=== PATIENT | female | born 1960 | race Caucasian/White ===

== ENCOUNTER 2017-09-03 12:53 | Inpatient (IN) | payer OTHER ==
[~2017-09-03] VITALS: Ht 165.1 cm; Wt 61.2 kg
[~2017-09-03 12:53] MED LIST: ANTIVERT25 MG ORAL; ASPIR-LOW81 MG PO; CYCLOBENZAPRINE10 MG ORAL; IBUPROFEN600 MG ORAL; KEFLEX500 MG ORAL; MOTRIN800 MG PO; MYLANTA II30 ML GT; NAPROXEN500 M2 ORAL; NKM; NORCO 5-325 TA1 EACH ORAL; ONDANSETRON ODT4 MG ORAL; PAROXETINE HCL20 MG PO; PEPCID40 MG PO; PRAVACHOL20 MG PO; PROTONIX40 MG ORAL; RANITIDINE HCL150 MG ORAL; TRAMADOL HCL50 MG ORAL; TRAZODONE HCL100 MG PO; TRAZODONE HCL50 MG PO; XANAX1 MG ORAL
[2017-09-03] MEDS ORDERED: Aspirin Baby 81mg ORAL ONE (15:00)
[2017-09-03 15:13] LABS: BASOPHILS % (AUTO) 0.9 % (0.0-2.0); EOSINOPHILS % (AUTO) 0.9 % (0.0-3.0); LYMPHOCYTES % (AUTO) 49.6 % (20.0-45.0); MEAN CORPUSCULAR HEMOGLOBIN 28.9 PG (27.0-31.0); MEAN CORPUSCULAR HGB CONC 32.3 G/DL (32.0-36.0); MEAN CORPUSCULAR VOLUME 89 FL (80-99); MEAN PLATELET VOLUME 6.5 FL (6.5-10.1); MONOCYTES % (AUTO) 6.6 % (1.0-10.0); PLATELET COUNT 374 K/UL (150-450); WHITE BLOOD COUNT 9.3 K/UL (4.8-10.8)
[2017-09-03 15:29] LABS: APPEARANCE,URINE CLEAR; KETONES,URINE NEGATIVE (NEGATIVE); LEUKOCYTE ESTERASE ,URINE NEGATIVE (NEGATIVE); NITRITE,URINE NEGATIVE (NEGATIVE); PH,URINE 5 (4.5-8.0); PROTEIN,URINE NEGATIVE (NEGATIVE); UROBILINOGEN,URINE NORMAL MG/DL (0.0-1.0)
[2017-09-03 15:30] LABS: ANION GAP 9 mmol/L (5-15); CALCIUM 9.6 MG/DL (8.5-10.1); CARBON DIOXIDE 29 MMOL/L (21-32); CHLORIDE 101 MMOL/L (98-107); CREATININE 0.6 MG/DL (0.55-1.30); GLOMERULAR FILTRATION RATE > 60 mL/min (>60); POTASSIUM 4.2 MMOL/L (3.5-5.1); SODIUM 139 MMOL/L (136-145)
[2017-09-03 15:34] LABS: ALANINE AMINOTRANSFERASE 26 U/L (12-78); ALBUMIN/GLOBULIN RATIO 0.8 (1.0-2.7); ASPARTATE AMINO TRANSFERASE 20 U/L (15-37); LIPASE 494 U/L (73-393); TOTAL PROTEIN 9.5 G/DL (6.4-8.2)
[2017-09-03 15:52] LABS: SQUAMOUS EPITHELIAL CELL,UR FEW /LPF (NONE/OCC); WBC,URINE 0-2 /HPF (0 - 2)
[2017-09-03 16:30] VITALS: BP 170/89
[2017-09-03] MEDS ORDERED: NORCO 10-325 T1 EACH ORAL (17:25)
[2017-09-03 17:32] VITALS: BP 157/64
[2017-09-03 18:20] VITALS: BP 147/77
[2017-09-03] MEDS ORDERED: HydrALAZINE 25mg tab ORAL PRN (19:15)
[2017-09-03 20:00] VITALS: BP 131/76
--- NOTE | 2017-09-03 23:02 | Emergency Room Report ---
History of Present Illness General Chief Complaint: General Complaint Source: Patient Present Illness [facility] The patient is a 57 y.o old female presenting for left leg weakness and numbness for the past 3 days. She has a stated history of hypertension and prediabetes. She states that she had a TIA treatment years prior which presented the same way. She denies any pain. She denies other symptoms including headache, dizziness, blurred vision, slurred speech, chest pain, shortness of breath, upper extremity weakness or numbness, fever Allergies: Coded Allergies: SULFAMETHOXAZOLE (Verified Allergy, Mild, 10/02/12) TRIMETHOPRIM (Verified Allergy, Mild, 10/02/12) Patient History Past Medical History: see triage record Pertinent Family History: none Social History: Reports: smoking Last Menstrual Period: Unk date Now: No Reviewed Nursing Documentation: PMH: Agreed, PSxH: Agreed Nursing Documentation-PMH Hx Cardiac Problems: No - hep c Hx Cancer: No Hx Gastrointestinal Problems: Yes - Hep C, GERD, Cholecystectomy. Hx Neurological Problems: Yes - PANIC ATTACKS Hx Vertigo: Yes Hx Dizziness: Yes Hx Syncope: Yes Hx Headaches: Yes Hx Numbness: Yes - RIGHT SIDE Hx Weakness: Yes - RIGHT ARM AND LEG Hx Fatigue: Yes Review of Systems All Other Systems: negative except mentioned in HPI Physical Exam Vital Signs Date Time Temp Pulse Resp B/P (MAP) Pulse Ox O2 Delivery O2 Flow Rate FiO2 09/03/17 12:59 98.2 99 17 143/92 100 09/03/17 16:30 Room Air Sp02 EP Interpretation: reviewed, normal General Appearance: no apparent distress, alert, GCS 15, non-toxic Head: normocephalic, atraumatic Eyes: bilateral eye normal inspection, bilateral eye PERRL ENT: hearing grossly normal, normal pharynx, no angioedema, normal voice Neck: full range of motion, supple/symm/no masses Respiratory: chest non-tender, lungs clear, normal breath sounds, speaking full sentences Cardiovascular #1: regular rate, rhythm, no edema Musculoskeletal: back normal, gait/station normal, normal range of motion, non- tender Neurologic: alert, oriented x3, responsive, clip coater III-XII nml as tested, motor strength/tone normal, sensory intact, speech normal Psychiatric: judgement/insight normal, memory normal, mood/affect normal, no suicidal/homicidal ideation Skin: normal color, no rash, warm/dry, well hydrated Lymphatic: no adenopathy Medical Decision Making PA Attestation Dr. Mcclellan is my supervising physician. Patient management was discussed with my supervising physician Diagnostic Impression: Primary Impression: CVA (cerebral vascular accident) Qualified Codes: I63.9 - Cerebral infarction, unspecified ER Course The patient is a 57 y.o old female presenting for left leg weakness and numbness for the past 3 days. Differential diagnosis considered not limited to: TIA, CVA, anxiety, peripheral neuropathy, among others PE: No apparent distress. A&Ox4 PERRL. EOMI. Normal mentation. CN II-XII grossly intact RRR. No MRG Lungs CTA bilat Abdomen: Normal appearance. Non distended. No ecchymosis. Normal BS. Non TTP. No McBurney point tenderness. No guarding. Skin is warm and dry, no rashes. Normal gate Labs: No leukocytosis. Lipase mildly elevated Alk phos elevated CT scan of head shows a region of low density on the right side. Possible lacunar infarct. Indeterminate age per radiologist. This was compared to head CT from 2 years prior. The patient will be admitted in serious but stable condition. Dr. Mcclellan has spoken with admitting physician. Laboratory Tests Test 09/03/17 14:50 White Blood Count 9.3 K/UL (4.8-10.8) Red Blood Count 6.30 M/UL (4.20-5.40) H Hemoglobin 18.2 G/DL (12.0-16.0) *H Hematocrit 56.2 % (37.0-47.0) H Mean Corpuscular Volume 89 FL (80-99) Mean Corpuscular Hemoglobin 28.9 PG (27.0-31.0) Mean Corpuscular Hemoglobin Concent 32.3 G/DL (32.0-36.0) Red Cell Distribution Width 12.0 % (11.6-14.8) Platelet Count 374 K/UL (150-450) Mean Platelet Volume 6.5 FL (6.5-10.1) Neutrophils (%) (Auto) 42.0 % (45.0-75.0) L Lymphocytes (%) (Auto) 49.6 % (20.0-45.0) H Monocytes (%) (Auto) 6.6 % (1.0-10.0) Eosinophils (%) (Auto) 0.9 % (0.0-3.0) Basophils (%) (Auto) 0.9 % (0.0-2.0) Prothrombin Time 10.0 SEC (9.30-11.50) Prothrombin Time INR 1.0 (0.9-1.1) PTT 26 SEC (23-33) Urine Color Pale yellow Urine Appearance Clear Urine pH 5 (4.5-8.0) Urine Specific [place] 1.025 (1.005-1.035) Urine Protein Negative (NEGATIVE) Urine Glucose (UA) Negative (NEGATIVE) Urine Ketones Negative (NEGATIVE) Urine Occult Blood 4+ (NEGATIVE) H Urine Nitrite Negative (NEGATIVE) Urine Bilirubin Negative (NEGATIVE) Urine Urobilinogen Normal MG/DL (0.0-1.0) Urine Leukocyte Esterase Negative (NEGATIVE) Urine RBC 2-4 /HPF (0 - 2) H Urine WBC 0-2 /HPF (0 - 2) Urine Squamous Epithelial Cells Few /LPF (NONE/OCC) Urine Bacteria None /HPF (NONE) Sodium Level 139 MMOL/L (136-145) Potassium Level 4.2 MMOL/L (3.5-5.1) Chloride Level 101 MMOL/L (98-107) Carbon Dioxide Level 29 MMOL/L (21-32) Anion Gap 9 mmol/L (5-15) Blood Urea Nitrogen 14 mg/dL (7-18) Creatinine 0.6 MG/DL (0.55-1.30) Estimate Glomerular Filtration Rate > 60 mL/min (>60) Glucose Level 82 MG/DL (74-106) Calcium Level 9.6 MG/DL (8.5-10.1) Total Bilirubin 0.4 MG/DL (0.2-1.0) Aspartate Amino Transferase (AST) 20 U/L (15-37) Alanine Aminotransferase (ALT) 26 U/L (12-78) Alkaline Phosphatase 163 U/L (46-116) H Troponin I 0.000 ng/mL (0.000-0.056) Total Protein 9.5 G/DL (6.4-8.2) H Albumin 4.2 G/DL (3.4-5.0) Globulin 5.3 g/dL Albumin/Globulin Ratio 0.8 (1.0-2.7) L Lipase 494 U/L (73-393) H Lab Results Impression No leukocytosis. Lipase mildly elevated Alk phos elevated EKG Diagnostic Results EP Interpretation: NSR. No acute changes Rate: normal Rhythm: NSR ST Segments: no acute changes ASA given to the pt in ED: Yes - 81mg PA Scribe Text EKG was reviewed and read with my supervising physician. No acute ST segment changes are seen. Normal rate and rhythm. No acute changes. CT/MRI/US Diagnostic Results CT/MRI/US Diagnostic Results : Imaging Test Ordered: CT head Impression CT scan of head shows a region of low density on the right side. Possible lacunar infarct. Indeterminate age per radiologist. This was compared to head CT from 2 years prior. Last Vital Signs Date Time Temp Pulse Resp B/P (MAP) Pulse Ox O2 Delivery O2 Flow Rate FiO2 09/03/17 20:00 97.7 71 18 131/76 96 09/03/17 17:32 Room Air Status: improved Disposition: ADMITTED INPATIENT Condition: Stable Referrals: [facility],REFERRING (PCP) LES JACKSON Sep 03, 2017 23:02
[2017-09-03] MEDS: Norco 10mg/325mg tab ORAL PRN (23:15)
[2017-09-04] VITALS: BP 135/71
[2017-09-04 08:18] VITALS: BP 136/66
--- NOTE | 2017-09-04 08:27 | Diagnostic Imaging Report ---
Indication: Pain, headache. Technique: Continuous helical CT scanning of the head was performed utilizing automated exposure control without intravenous contrast material. Axial and coronal reconstructions were obtained. Comparison: 08/15/2015 CT dose: Total DLP 1312.75 mGycm; CTDI vol 70.38 mGy Findings: There is no acute intracranial hemorrhage, mass effect or mid line shift. There are focal regions of low-attenuation in the right basal ganglia/lentiform nucleus (series 3 image #13). One hypodensity measures 11 x 5 mm the other measures 3 x 5 mm. These could represent age-indeterminate lacunar infarcts. Size and configuration of the ventricular system within normal limits and stable compared to the prior exam. The posterior fossa and fourth ventricle are unremarkable. Sellar and suprasellar regions are grossly unremarkable. Visualized mastoid air cells and paranasal sinuses are unremarkable. No focal lesions of the bony calvarium or soft tissues of the scalp are seen. Impression: Asymmetric hypodensities in the region of the right lentiform nucleus concerning for ischemia, age indeterminate. MRI of the brain recommended for further evaluation. No evidence of acute intracranial hemorrhage. This corresponds with the statrad preliminary report. The CT scanner at [facility] is accredited by the [employer] and the scans are performed using protocols designed to limit radiation exposure to as low as reasonably achievable to attain images of sufficient resolution adequate for diagnostic evaluation.
[2017-09-04] MEDS: Norco 10mg/325mg tab ORAL PRN (08:46)
[2017-09-04] MEDS ORDERED: Aspirin EC 81mg tab ORAL SCH (09:00)
[2017-09-04 12:02] VITALS: BP 146/88
--- NOTE | 2017-09-04 12:37 | Neurology Progress Note ---
Objective Physical Exam Last Vital Signs Date Time Temp Pulse Resp B/P (MAP) Pulse Ox O2 Delivery O2 Flow Rate FiO2 09/04/17 12:02 98.6 76 20 146/88 96 09/03/17 18:00 Room Air Laboratory Tests Test 09/03/17 14:50 White Blood Count 9.3 K/UL (4.8-10.8) Red Blood Count 6.30 M/UL (4.20-5.40) H Hemoglobin 18.2 G/DL (12.0-16.0) *H Hematocrit 56.2 % (37.0-47.0) H Mean Corpuscular Volume 89 FL (80-99) Mean Corpuscular Hemoglobin 28.9 PG (27.0-31.0) Mean Corpuscular Hemoglobin Concent 32.3 G/DL (32.0-36.0) Red Cell Distribution Width 12.0 % (11.6-14.8) Platelet Count 374 K/UL (150-450) Mean Platelet Volume 6.5 FL (6.5-10.1) Neutrophils (%) (Auto) 42.0 % (45.0-75.0) L Lymphocytes (%) (Auto) 49.6 % (20.0-45.0) H Monocytes (%) (Auto) 6.6 % (1.0-10.0) Eosinophils (%) (Auto) 0.9 % (0.0-3.0) Basophils (%) (Auto) 0.9 % (0.0-2.0) Prothrombin Time 10.0 SEC (9.30-11.50) Prothromb Time International Ratio 1.0 (0.9-1.1) Activated Partial Thromboplast Time 26 SEC (23-33) Urine Color Pale yellow Urine Appearance Clear Urine pH 5 (4.5-8.0) Urine Specific [place] 1.025 (1.005-1.035) Urine Protein Negative (NEGATIVE) Urine Glucose (UA) Negative (NEGATIVE) Urine Ketones Negative (NEGATIVE) Urine Occult Blood 4+ (NEGATIVE) H Urine Nitrite Negative (NEGATIVE) Urine Bilirubin Negative (NEGATIVE) Urine Urobilinogen Normal MG/DL (0.0-1.0) Urine Leukocyte Esterase Negative (NEGATIVE) Urine RBC 2-4 /HPF (0 - 2) H Urine WBC 0-2 /HPF (0 - 2) Urine Squamous Epithelial Cells Few /LPF (NONE/OCC) Urine Bacteria None /HPF (NONE) Sodium Level 139 MMOL/L (136-145) Potassium Level 4.2 MMOL/L (3.5-5.1) Chloride Level 101 MMOL/L (98-107) Carbon Dioxide Level 29 MMOL/L (21-32) Anion Gap 9 mmol/L (5-15) Blood Urea Nitrogen 14 mg/dL (7-18) Creatinine 0.6 MG/DL (0.55-1.30) Estimat Glomerular Filtration Rate > 60 mL/min (>60) Glucose Level 82 MG/DL (74-106) Calcium Level 9.6 MG/DL (8.5-10.1) Total Bilirubin 0.4 MG/DL (0.2-1.0) Aspartate Amino Transf (AST/SGOT) 20 U/L (15-37) Alanine Aminotransferase (ALT/SGPT) 26 U/L (12-78) Alkaline Phosphatase 163 U/L (46-116) H Troponin I 0.000 ng/mL (0.000-0.056) Total Protein 9.5 G/DL (6.4-8.2) H Albumin 4.2 G/DL (3.4-5.0) Globulin 5.3 g/dL Albumin/Globulin Ratio 0.8 (1.0-2.7) L Lipase 494 U/L (73-393) H Impression/Recommendations Problems: (1) Left leg monoparesis/dysesthesia r/o peroneal neuropathy vs L S1 radiculopathy Status: stable Recommendations # [id number] CARLY HOLDER Sep 04, 2017 12:37
[2017-09-04] MEDS ORDERED: BACLOFEN10 MG ORAL (13:48)
--- NOTE | 2017-09-04 14:29 | Cardiology Report ---
APPROVED REPORT EXAM: Two-dimensional and M-mode echocardiogram with Doppler and color Doppler. INDICATION CVA/TIA M-Mode DIMENSIONS IVSd0.7 (0.7-1.1cm)Left Atrium (MM)3.3 (1.6-4.0cm) LVDd4.9 (3.5-5.6cm)Aortic Root3.1 (2.0-3.7cm) PWd0.8 (0.7-1.1cm)Aortic Cusp Exc.1.7 (1.5-2.0cm) LVDs2.6 (2.5-4.0cm) PWs1.6 cm Normal left ventricular chamber size, systolic function and wall motion. Left ventricular ejection fraction estimated to be 60 %. No evidence of left ventricular hypertrophy. Anterior Echo-free space, may be due to pericardial fat or effusion. All other cardiac chamber sizes are within normal limits. Focal aortic valve sclerosis with adequate cusp excursion. Thickened mitral valve leaflets with normal excursion. Mitral annulus and aortic root calcification. Pulmonic valve not well visualized. Normal tricuspid valve structure. IVC dilated at 2.1 cm with physiologic collapse suggestive of increased RA pressure.. A color flow and spectral Doppler study was performed and revealed: No aortic regurgitation. Trace mitral regurgitation. reduced left ventricular relaxation c/w impaired relaxation diastolic dysfunction. Mild tricuspid regurgitation. Tricuspid systolic velocities suggests peak right ventricular systolic pressure of 42 mmHg, consistent with mild pulmonary hypertension. Trace pulmonic regurgitation present.
--- NOTE | 2017-09-04 14:54 | Cardiology Report ---
APPROVED REPORT EKG Measurement Heart [id number] Normal sinus rhythm Possible Left atrial enlargement Borderline ECG
--- NOTE | 2017-09-04 22:15 | Consultation ---
DATE OF CONSULTATION: 09/04/2017 NEUROLOGICAL CONSULTATION CONSULTING PHYSICIAN: Allan Harman M.D. REQUESTING PHYSICIAN: Olvin Villatoro M.D. HISTORY OF PRESENT ILLNESS: This is a 57-year-old female, seen in neurological consultation to evaluate new onset of left lower extremity weakness and numbness. According to the patient, she was doing fairly well except the last five days, she developed severe cold, she was in bed for a couple of days. She noted numbness in her left lower extremity below the knee and weakness in the left foot and and toes, she noted that foot was drooping. Symptoms were not improving and she is sent into emergency room, there was no evidence of pain. Vital signs were stable. Blood pressure 133/92, temperature 98.2. CAT scan of the brain was obtained revealing asymmetric hyperdensity in the region. Cat scan of the brain, there are no acute abnormalities, there was asymmetric hyperdensity in the right lentiform nucleus. No clear concerning ischemia, age undetermined. Lab work included CBC study with hemoglobin 18.2, RBC 6.30, and hematocrit 36.2. Urinalysis unremarkable. Chemistry panel, elevated protein of 9.5. Alkaline phosphatase is 163. Lipase of 494. Imaging studies limited to CAT scan of the brain. Since admission till present, there was no further changes in her status. PAST MEDICAL HISTORY: The patient has a history of "stroke" in 2010 when she developed acute onset of right-sided numbness, weakness, and spasticity, which lasted for a couple of weeks and gradually resolve. Cause of her "stroke" was not clarified, although there was suggestion that it may have been result of many years history of Motrin use. The patient has a history of fall with a coccygeal trauma supposedly no fracture noted on the MRI, she is now with pain management and she is maintained on Ward as well as baclofen. She is unaware of having other major medical problems. MEDICATIONS: Her treatment list include Flexeril, aspirin, Ward. She states is not being taken ibuprofen or Naprosyn, she was not being taken because of "fear of stroke." She is on Paxil, Pravachol , tramadol, and trazodone. ALLERGIES: None reported except sulfamethoxazole and trimethoprim. SOCIAL HISTORY: No alcohol and no drug abuse, but she is a smoker. 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 FAMILY HISTORY: Noncontributory. REVIEW OF SYMPTOMS: The patient indicated occasionally she has aches and pains of upper back neck, low back region, but currently has no pain. She has a tingling and numbness below the knee with weakness in left foot and she has "tremendous" fear of having stroke. Denies chest pain or palpitations. No respiratory problems. Denies abdominal pain or discomfort. No urine or bowel incontinence. PHYSICAL EXAMINATION: GENERAL: A well-developed, well-nourished female, not in acute distress. VITAL SIGNS: Stable. Blood pressure 132/80, respirations 14. HEENT: Head normocephalic. No evidence of trauma. Eyes, ears, and throat are clear. NECK: Supple. No meningeal signs. MUSCULOSKELETAL: Unremarkable. There is no deformities. Straight leg raising is negative. There is no percussion tenderness in cervical or dorsal lumbar spine. There is no percussion tenderness in both lower extremities. Peripheral pulses 1+ symmetric. MENTAL STATUS: Alert and oriented x3 with no evidence of aphasia or apraxia. Cognitive function normal. Emotionally labile, tense, and anxious. CRANIAL NERVE II: Pupils both responding to light and accommodation. Extraocular movements intact. No nystagmus. CRANIAL NERVE V: Normal corneal responses. CRANIAL NERVE VII: No facial asymmetry. CRANIAL NERVE VIII: Normal hearing. CRANIAL NERVES IX THROUGH XII: Tongue is in midline. Symmetric palate elevation. MOTOR EXAMINATION: Reveals normal muscle tone and strength. A 5/5 in all extremities except 4/5 left foot dorsiflexion. Deep tendon reflexes 2+ bilaterally symmetric except 1+ left knee jerk and 1+ both ankle jerks. Plantar responses flexor. SENSORY EXAMINATION: Dysesthesia in the left ankle region and nondermatomal. IMPRESSION: 1. New onset of left lower extremity paresis/dysesthesia, rule out left L5-S1 nerve root entrapment, rule out peroneal neuropathy. No evidence of acute stroke or transient ischemia. 2. History of lumbar diskogenic disease. 3. History of "stroke," resolved. 4. Presence of ischemic cerebrovascular disease with a suggestion of old right basal ganglia lacunar stroke. 5. Anxiety. 6. Chronic coccygeal pain, on opiates. DISCUSSION: The patient now indicated that previously tried steroids because of her anxiety. So, she would not like to start again. She was also avoid use of nonsteroidal agents because she was told that it may provoke her stroke. At this time, the patient will need to have MRI of lumbosacral spine, which will be compared with the previous study done a few months ago. Get outpatient EMG nerve conduction study of left lower extremity, have left foot supports, get physical therapy for lower extremities, and try to start on nonsteroidal agents. Noted laboratory abnormalities with elevated hemoglobin, hematocrit, and RBC, suggestive of polycythemia. This will be further addressed by attending physician and abnormal total protein. Lipase to be repeated further. Thank you for allowing me to see this interesting patient in neurological consultation. Allan Harman M.D. DR: Huseyin JOB#: [id number] CC:
--- NOTE | 2017-09-05 04:00 | History and Physical Report ---
DATE OF ADMISSION: 09/04/2017 CONSULTING PHYSICIAN: Julio Villatoro M.D. REASON FOR ADMISSION: Left leg weakness and numbness. HISTORY OF PRESENT ILLNESS: The patient is a pleasant 57-year-old female with past medical history significant for GERD, cholecystectomy, hepatitis C at this time presents to the hospital with weakness and left leg numbness for three days. She states she has a history of diabetes mellitus and prehypertension. She states she has a history of TIA in the past, similar symptoms; however, this is worsened at this time, has consulted Dr. Harman. Dr. Harman of Neurology service evaluated the patient. Imaging has been completed with CT of the head did not show any acute stroke at this moment. Besides potential chronic stroke, hypertension, in addition to , MRI recommended potentially as an outpatient. The patient is to be discharged today. PAST MEDICAL HISTORY: As noted above with hepatitis C. ALLERGIES: Sulfamethoxazole and trimethoprim. SOCIAL HISTORY: Smoking. No illicit drug use. No alcohol. neurological symptoms, panic attacks. FAMILY HISTORY: Noncontributory. REVIEW OF SYSTEMS: CONSTITUTIONAL: The patient does have present history of panic attacks. SKIN: No rashes, bumps, or itching. HEENT: No headache, hearing, or vision changes. BREASTS: No lumps, pain, or discharge. PULMONARY: No cough, sputum, or shortness of breath. GASTROINTESTINAL: No nausea, vomiting, or diarrhea. GENITOURINARY: No dysuria, frequency, or urgency. MUSCULOSKELETAL: No joint swelling, muscle pain, or trauma. PHYSICAL EXAMINATION: VITAL SIGNS: Reviewed. GENERAL: No distress. PULMONARY: Decreased breath sounds. CARDIOVASCULAR: Regular rate. No S3 or S4. ABDOMEN: Soft, nontender, and nondistended. EXTREMITIES: A 1+ edema. LABORATORY DATA: Hemoglobin 18.2. INR of 1. BUN of 14, creatinine 0.6. ASSESSMENT AND RECOMMENDATIONS: 1. Weakness of the left side with numbness. The patient with a history of potential transient ischemic attack versus stroke. This could also be secondary to panic attack. The patient to have an MRI as an outpatient. No other associated neurological symptoms at this moment. 2. Erythrocytosis. JAK2 has been ordered. Continue to closely monitor. Written recommendations provided given potential stroke in the setting of erythrocytosis, need to rule out myeloproliferative disorder. 3. Hepatitis C, management in an outpatient setting. 4. Elevated protein, obtain SPEP and UPEP. 5. Anxiety, panic attack. Psychiatry evaluation. I appreciate the consultation. Julio Villatoro M.D. DR: Ginger JOB#: [id number] CC: ISAAC
--- NOTE | 2017-09-08 13:14 | Discharge Summary ---
Discharge Summary Hospital Course Date of Admission Sep 03, 2017 at 15:56 Date of Discharge Sep 04, 2017 at 14:42 Admitting Diagnosis CVA HPI Gonzalo Li is a 57 year old female who was admitted on Sep 03, 2017 at 15: 56 for Cardio Vascular Accident Hospital Course dc summary #[id number] Discharge Medications Continued Medications: Aspirin* (Aspir-Low*) 81 Mg Tablet.dr 81 MG PO DAILY Hydrocodone Bit/Acetaminophen 10-325* ([place] 10-325*) 1 Each Tablet 1 TAB ORAL Q8HR PRN for For Pain, #10 TAB 0 Refills PRN PAIN Discharge Discharge Disposition Patient was discharged to Home (01) Discharge Diagnoses: Discharge Instructions Discharge Instructions Special Instructions I have been assigned to complete a D/C Summary on this account. I was not involved in the patient management Amy Pollard NP ([place]te[place]) Sep 08, 2017 13:14
--- NOTE | 2017-09-08 23:15 | Discharge Summary 2 SIG ---
DATE OF ADMISSION: 09/03/2017 DATE OF DISCHARGE: 09/04/2017 REASON FOR ADMISSION: 57-year-old female presented to emergency department for evaluation due to the new onset of the left leg weakness and numbness for the last three days. The patient reported history of hypertension and prediabetes. She stated she had a TIA years before, which was presented in the same way. She denied any pain. She denied headache, dizziness, slurred speech, chest pain, shortness of breath, fevers, or blurred vision. The patient had a history of panic attack and hepatitis C. Workup in the emergency room revealed stable vital signs. CT of the head showed asymmetric hypodensity in the region of the right lentiform nucleus concerning for ischemia, possibly old lacunar infarct. No evidence of acute intracranial pathology. Neurology consult was requested. The patient was admitted to the hospital with diagnosis of possible CVA. HOSPITAL COURSE: The patient was admitted. Neurology consult was requested. Neurologist closely evaluated imaging. According to neurologist, the patient had a new onset of left lower extremity paresis/dysesthesia. There was no evidence of acute stroke as per neurologist conclusion, however left L5-S1 nerve root entrapment or peroneal neuropathy needs to be ruled out. He recommended MRI of the l lumbosacral spine and compare with the previous study, which done a few months ago, that could be done as outpatient. Along with that study, he recommended outpatient EMG nerve conduction study of the left lower extremity as well as left foot support, physical therapy for left lower extremity training, and start the patient on steroids or nonsteroid anti-inflammatory medications. The patient declined to start steroids and nonsteroidal antiinflammatory agent. Patietn was started on aspirin. Echocardiogram revealed preserved ejection fraction of 60% and right ventricular systolic pressure of 42 consistent with mild pulmonary hypertension. No evidence of vegetation or thrombus. The patient was noted to have elevated total protein. Patient needs workup for elevated protein such as serum protein electrophoresis and urine protein electrophoresis that could be done as outpatient. For hepatitis C, patient was recommended to have outpatient treatment with GI specialist. The patient was noted to have erythrocytosis. JAK2 was ordered. The patient to follow up with the electric sign assembler as outpatient. The patient may need to rule out myeloproliferative disorder. Overall, her symptoms resolved. Her symptoms could have been due to the potential transient ischemic attack versus panic attack. The patient was stable for discharge home and follow up as an outpatient as outlined above. Due to the rapid and unexpected improvement in the patient's condition, the patient was discharged in one day. FINAL DIAGNOSES: 1. New onset of left lower extremity paresis/dysesthesia. 2. History of lumbar discogenic disease. 3. 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 4. Panic attacks. 5. Chronic coccygeal pain, on opiates. 6. Erythrocytosis. 7. Hepatitis C. 8. Elevated troponin. DISCHARGE MEDICATIONS: See medication reconciliation list. DISCHARGE INSTRUCTIONS: The patient was discharged home. Follow up with primary medical doctor in one week. The patient needs to follow up with GI for outpatient hepatitis C management. The patient needs to follow up with the electric sign assembler/ oncologist for erythrocytosis ( JAK2 was already ordered ) and workup for elevated protein including serum protein electrophoresis and urine protein electrophoresis. The patient also recommended to have outpatient MRI of the lumbosacral spine to rule out L5-S1 nerve root entrapment, and nerve conduction study mike neurologist to rule out peroneal neuropathy. Olvin Villatoro MD I have been assigned to dictate discharge summary on this account and I was not involved in the patient's management. Amy ThompsonGlens Falls HospitalKarla N.PDenisse DR: SHEA JOB#: [id number] CC: ISAAC
== END 2017-09-04 14:42 | disposition home or self-care (01) | DRG 58 ==
LOC: EMR 14:25 → 4E 15:56 → EDBEDREQ 17:00
DX: R20.8 Other disturbances of skin sensation (principal); I27.20 Pulmonary hypertension, unspecified; B19.20 Unspecified viral hepatitis C without hepatic coma; F41.9 Anxiety disorder, unspecified; M53.3 Sacrococcygeal disorders, not elsewhere classified; Z86.73 Personal history of transient ischemic attack (TIA), and cerebral infarction without residual deficits; M51.36 Other intervertebral disc degeneration, lumbar region; F41.0 Panic disorder [episodic paroxysmal anxiety]; G89.29 Other chronic pain; Z79.891 Long term (current) use of opiate analgesic
CPT/HCPCS: 36415; 70450; 80053; 81003; 83690; 84484; 85025; 85610; 85730; 93005; 93306; 99285

== ENCOUNTER 2018-04-02 13:43 | Emergency (ER) | payer OTHER ==
[~2018-04-02] VITALS: Ht 165.1 cm; Wt 61.7 kg
[~2018-04-02 13:43] MED LIST changes: +BACLOFEN10 MG ORAL; +NORCO 10-325 T1 EACH ORAL
[2018-04-02 13:56] VITALS: BP 135/59
--- NOTE | 2018-04-02 14:40 | Emergency Room Report ---
History of Present Illness General Chief Complaint: Skin Rash/Abscess Source: Patient Present Illness HPI 57-year-old female patient presents ER complaining of possible bug bites on her left leg, left-sided neck and right breast. Reports bites appear to after getting her hair done yesterday. Reports there intensely pruritic. Reports mild erythema at bug bite sites. Denies bleeding or drainage. Denies open wounds. Reports that she has used topical Benadryl, rubbing alcohol, hydrocortisone cream with mild relief of itching symptoms. Denies fever, chest pain, shortness of breath, vomiting. Denies other acute symptoms. Allergies: Coded Allergies: SULFAMETHOXAZOLE (Verified Allergy, Mild, 10/02/12) TRIMETHOPRIM (Verified Allergy, Mild, 10/02/12) Patient History Past Medical History: see triage record Last Menstrual Period: na Reviewed Nursing Documentation: PMH: Agreed; PSxH: Agreed Nursing Documentation-PMH Past Medical History: No History, Except For Hx Cardiac Problems: No - hep c Hx Cancer: No Hx Gastrointestinal Problems: Yes - Hep C, GERD, Cholecystectomy. Hx Neurological Problems: Yes - PANIC ATTACKS Hx Cerebrovascular Accident: Yes - CVA 2010. Hx Vertigo: Yes Hx Dizziness: Yes Hx Syncope: Yes Hx Headaches: Yes Hx Numbness: Yes - RIGHT SIDE Hx Weakness: Yes - RIGHT ARM AND LEG Hx Fatigue: Yes Review of Systems All Other Systems: negative except mentioned in HPI Physical Exam Vital Signs Date Time Temp Pulse Resp B/P (MAP) Pulse Ox O2 Delivery O2 Flow Rate FiO2 04/02/18 13:46 97.0 88 18 135/59 96 Room Air 97.0 Sp02 EP Interpretation: reviewed, normal General Appearance: well appearing, no apparent distress, alert, GCS 15, non- toxic Head: normocephalic, atraumatic Eyes: bilateral eye normal inspection, bilateral eye PERRL ENT: hearing grossly normal, normal pharynx, no angioedema, normal voice, uvula midline, moist mucus membranes Neck: full range of motion Respiratory: lungs clear, normal breath sounds, no rhonchi, no respiratory distress, no accessory muscle use, no wheezing, speaking full sentences Cardiovascular #1: regular rate, rhythm, no edema Musculoskeletal: back normal, digits/nails normal, gait/station normal, normal range of motion, non-tender Neurologic: alert, oriented x3, responsive, motor strength/tone normal, sensory intact Psychiatric: mood/affect normal Skin: other - right breast: at 7'oclock position, mildly erythematous plaque with excoriations, no fluctuance or induration, no central clearing, no satellite lesions, no edema, no warmth to touch, no bite rios; left side of neck and left anterior burnett: erythematous maculopapular lesion with excoriations , no bleeding, no open wound, no open lesions, <1cm Medical Decision Making PA Attestation Dr. Marroquin is my supervising Physician whom patient management has been discussed with. Diagnostic Impression: Primary Impression: Rash and other nonspecific skin eruption ER Course Pt. presents to the ED c/o bug bite. Ddx considered but are not limited to atopic dermatitis, bug bite, urticaria, allergic reaction. Vital signs: are WNL, pt. is afebrile ER COURSE: physical exam performed with female valve inserter in the room. Breast exam performed, no palpable nodules or abscess, no axillary lymphadenopathy, no nipple discharge. Mildly erythematous plaque with excoriations noted on right breast at 7 o'clock position, left lateral neck and left anterior burnett, no bite rios noted, no warmth to touch or tenderness to palpation, low suspicion for infection requiring antibiotics. No central clearing or satellite lesions, no well- defined, red scalloped borders low suspicion for fungal infection. no fluctuance or induration, no palpable nodule, low suspicion for abscess requiring drainage. Likely localized reaction secondary to bug bites causing symptoms. excoriations noted secondary to patient scratching. Instructed patient not to scratch. Instructed patient to apply cool compress to affected area. Will provide patient with stronger steroid cream, will provide with triamcinolone cream, apply a small amount to affected areas, do not apply to face or skin creases. Take Benadryl for itching symptoms. Follow-up with primary care in 2- 3 days request referral to dermatology. ER precautions given the ER for new or worsening symptoms including but not limited to shortness breath, chest pain, tongue swelling, worsening of rash symptoms, red streaking. DISCHARGE: -Rx given for Benadryl for pruritis. SE may cause drowsiness, to not take prior to drinking, driving, operating of machinery. -Rx given for triamcinolone cream. -Patient instructed to apply cool compresses to affected area. At this time pt. is stable for d/c to home. Patient resting comfortably, in no acute distress, nontoxic appearing. Care plan and follow up instructions have been discussed with the patient prior to discharge. Patient provided with printed patient care instructions, and any necessary prescriptions. Patient instructed to follow-up with primary care provider in 3 - 5 days. Patient questions asked and answered. Patient reports understanding and agreement to treatment plan. ER precautions given. Patient instructed to return to ER immediately for any new or worsening of symptoms including but not limited to increasing SOB, persistent fever. - Please note that this Emergency Department Report was dictated using [employer] station chief technology software, occasionally this can lead to erroneous entry secondary to interpretation by the dictation equipment. Last Vital Signs Date Time Temp Pulse Resp B/P (MAP) Pulse Ox O2 Delivery O2 Flow Rate FiO2 04/02/18 13:56 97.0 18 135/59 96 Room Air 97.0 04/02/18 13:46 88 Disposition: HOME, SELF-CARE Condition: Stable Scripts Triamcinolone Acetonide (TRIAMCINOLONE ACETONIDE) 15 Gm Cream..g. 15 GM TP BID for 7 Days, #15 GM Prov: Cornelio Landaverde 04/02/18 Diphenhydramine Hcl* (BENADRYL*) 25 Mg Capsule 25 MG ORAL DAILY PRN for Itching, #30 CAP Prov: Cornelio Landaverde 04/02/18 Referrals: NON PHYSICIAN (PCP) Patient Instructions: Insect Bite, [id number], Rash Additional Instructions: Followup with primary care provider in 3 -5 days. Follow-up with dermatology. Take medications as directed. do not take Benadryl prior drinking, driving, operating machinery. Apply small amount came to the affected areas, do not apply to face or skin creases. Do not scratch. Apply cool compresses. Patient questions asked and answered. ER precautions given, patient instructed to return to ER immediately for any new or worsening of symptoms. Cornelio Landaverde Apr 02, 2018 14:40
[2018-04-02] MEDS ORDERED: BENADRYL25 MG ORAL (14:42)
[2018-04-02] MEDS ORDERED: TRIAMCINOLONE A15 GM TP (14:42)
[2018-04-02 14:48] VITALS: BP 135/59
== END 2018-04-02 14:48 | disposition home or self-care (01) ==
LOC: EMR 14:31
DX: R21 Rash and other nonspecific skin eruption (principal); Z88.2 Allergy status to sulfonamides; K21.9 Gastro-esophageal reflux disease without esophagitis; Z90.49 Acquired absence of other specified parts of digestive tract; Z86.73 Personal history of transient ischemic attack (TIA), and cerebral infarction without residual deficits
CPT/HCPCS: 99283

== ENCOUNTER 2019-01-10 17:12 | Emergency (ER) | payer OTHER ==
[~2019-01-10] VITALS: Ht 165.1 cm; Wt 60.8 kg
[~2019-01-10 17:12] MED LIST changes: +BENADRYL25 MG ORAL; +METHIMAZOLE10 MG PO; +TRIAMCINOLONE A15 GM TP
[2019-01-10 17:24] VITALS: BP 138/74
--- NOTE | 2019-01-10 17:30 | NUR ---
ED Nurse Note: pt walked in with strong and stead gait . pt states she is having multiple issues and her doctor told her to go to er to have blood tests done .Ermd at bedside awaiting orders.
[2019-01-10 18:39] LABS: ANION GAP 7 mmol/L (5-15); BLOOD UREA NITROGEN 16 mg/dL (7-18); CALCIUM 9.8 MG/DL (8.5-10.1); CARBON DIOXIDE 29 MMOL/L (21-32); CHLORIDE 103 MMOL/L (98-107); CREATININE 0.7 MG/DL (0.55-1.30); POTASSIUM 3.6 MMOL/L (3.5-5.1); SODIUM 139 MMOL/L (136-145)
[2019-01-10 18:44] LABS: BASOPHILS % (AUTO) 1.3 % (0.0-2.0); EOSINOPHILS % (AUTO) 1.3 % (0.0-3.0); HEMATOCRIT 51.5 % (37.0-47.0); HEMOGLOBIN 17.4 G/DL (12.0-16.0); LYMPHOCYTES % (AUTO) 42.8 % (20.0-45.0); MEAN CORPUSCULAR VOLUME 84 FL (80-99); NEUTROPHILS % (AUTO) 48.7 % (45.0-75.0); PLATELET COUNT 297 K/UL (150-450); RED BLOOD COUNT 6.15 M/UL (4.20-5.40); RED CELL DISTRIBUTION WIDTH 11.3 % (11.6-14.8); WHITE BLOOD COUNT 9.4 K/UL (4.8-10.8)
--- NOTE | 2019-01-10 18:44 | NUR ---
ED Nurse Note: blood and urine sent
[2019-01-10 18:46] LABS: APPEARANCE,URINE CLEAR; BILIRUBIN, URINE NEGATIVE (NEGATIVE); GLUCOSE, URINE (UA) NEGATIVE (NEGATIVE); KETONES,URINE 1+ (NEGATIVE); LEUKOCYTE ESTERASE ,URINE 1+ (NEGATIVE); NITRITE,URINE NEGATIVE (NEGATIVE); PH,URINE 5 (4.5-8.0); PROTEIN,URINE 1+ (NEGATIVE); UROBILINOGEN,URINE 1 MG/DL (0.0-1.0)
[2019-01-10 18:47] LABS: COLOR,URINE YELLOW
[2019-01-10 18:55] LABS: ALANINE AMINOTRANSFERASE 37 U/L (12-78); ALBUMIN 3.8 G/DL (3.4-5.0); ALBUMIN/GLOBULIN RATIO 0.8 (1.0-2.7); ALKALINE PHOSPHATASE 149 U/L (46-116); ASPARTATE AMINO TRANSFERASE 28 U/L (15-37); BILIRUBIN,TOTAL 0.4 MG/DL (0.2-1.0)
--- NOTE | 2019-01-10 19:09 | NUR ---
HAND-OFF: Report given to David WILKERSON.
[2019-01-10] MEDS ORDERED: METOPROLOL SUCC25 MG ORAL (19:10)
[2019-01-10 19:21] VITALS: BP 128/74
--- NOTE | 2019-01-10 19:21 | NUR ---
ER DISCHARGE NOTE: Patient is cleared to be discharged per ERMD, pt is aox4, on room air, with stable vital signs. pt was given dc and prescription instructions, pt was able to verbalize understanding, pt id band and iv site removed without complications. pt is able to ambulate with steady gait. pt took all belongings.
--- NOTE | 2019-01-10 20:17 | Emergency Room Report ---
History of Present Illness General Chief Complaint: Abnormal Labs Source: Patient Present Illness HPI 58-year-old female presents ED for evaluation. Patient states she was referred to ED because of abnormal labs. States that she was told by her PMD that her thyroid levels were "dangerously low". Was told this 2 days ago. States she could not come in because of family problems. Patient notes history of hyperthyroidism and takes methimazole. States that she has stopped taking the medication for several months because adverse reactions. After she was told about her abnormal labs 2 days ago she was urged to restart the medication. Patient states that she did restart the medication. States she feels anxious and nervous. Denies palpitations. Denies chest pain or shortness of breath. Denies fevers or chills. Dizziness. No other aggravating relieving factors. Denies any other associated symptoms Allergies: Coded Allergies: SULFAMETHOXAZOLE (Verified Allergy, Mild, 10/02/12) TRIMETHOPRIM (Verified Allergy, Mild, 10/02/12) IBUPROFEN (Verified Allergy, Unknown, 05/16/18) Patient History Past Medical History: GERD, CVA/TIA, psych hx Past Surgical History: joshua Pertinent Family History: none Social History: Denies: smoking, alcohol use, drug use Now: No Immunizations: UTD Reviewed Nursing Documentation: PMH: Agreed; PSxH: Agreed Nursing Documentation-PMH Past Medical History: No History, Except For Hx Cardiac Problems: No - hep c, Hyperthyroidism Hx Cancer: No Hx Gastrointestinal Problems: Yes - Hep C, GERD, Cholecystectomy. Hx Neurological Problems: Yes - PANIC ATTACKS Hx Cerebrovascular Accident: Yes - CVA 2010. Hx Vertigo: Yes Hx Dizziness: Yes Hx Syncope: Yes Hx Headaches: Yes Hx Numbness: Yes - RIGHT SIDE Hx Weakness: Yes - RIGHT ARM AND LEG Hx Fatigue: Yes Review of Systems All Other Systems: negative except mentioned in HPI Physical Exam Vital Signs Date Time Temp Pulse Resp B/P (MAP) Pulse Ox O2 Delivery O2 Flow Rate FiO2 01/10/19 17:16 98.4 99 20 138/74 93 Room Air Sp02 EP Interpretation: reviewed, normal General Appearance: no apparent distress, alert, GCS 15, non-toxic Head: normocephalic, atraumatic Eyes: bilateral eye normal inspection, bilateral eye PERRL ENT: hearing grossly normal, normal pharynx, no angioedema, normal voice Neck: full range of motion, supple/symm/no masses Respiratory: chest non-tender, lungs clear, normal breath sounds, speaking full sentences Cardiovascular #1: regular rate, rhythm, no edema Cardiovascular #2: 2+ carotid (R), 2+ carotid (L), 2+ radial (R), 2+ radial (L) , 2+ dorsalis pedis (R), 2+ dorsalis pedis (L) Gastrointestinal: normal bowel sounds, non tender, soft, non-distended, no guarding, no rebound Rectal: deferred Genitourinary: normal inspection, no CVA tenderness Musculoskeletal: back normal, gait/station normal, normal range of motion, non- tender Neurologic: alert, oriented x3, responsive, motor strength/tone normal, sensory intact, speech normal Psychiatric: no suicidal/homicidal ideation, no delusions, anxious Reflexes: 3+ bicep (R), 3+ bicep (L), 3+ tricep (R), 3+ tricep (L), 3+ knee (R) , 3+ knee (L) Skin: normal color, no rash, warm/dry, well hydrated Lymphatic: no adenopathy Medical Decision Making Diagnostic Impression: Primary Impression: Hyperthyroidism Additional Impression: Panic attack ER Course Hospital Course 58 yo F presents to ED for evaluation of her thyroid. not compliant with her methaimazole Differential diagnoses include: arryhtmia, thyroid storm, hyperthyroidism Clinical course Patient placed on stretcher. After initial history and physical I ordered labs , EKG labs reviewed- all electrolytes normal, T4 and T3 elevated EKG - NSR, no acute ischemic changes interpreted by me Discussed findings with patient. Patient is not in thyroid storm. Patient needs to continue methimazole for now. States she was also prescribe propranolol which she states is not helping. We'll switch to low-dose metoprolol. Discussed findings with her PMD Safe for discharge with close outpatient follow-up I. I feel this is a highly complex case requiring extensive working including EKG/Rhythm strip, Xray/CT/US, Blood/urine lab work, repeat exams while in ED, and administration of strong opiates/narcotics for pain control, admission to hospital or close patient follow up. Diagnosis - hyperthyroidism, panic attack Stable and discharged to home with Rx metoprolol. Instructed to followup with PMD. Return to ED if symptoms recur or worsen Labs Test 01/10/19 18:16 White Blood Count 9.4 K/UL (4.8-10.8) Red Blood Count 6.15 M/UL (4.20-5.40) Hemoglobin 17.4 G/DL (12.0-16.0) Hematocrit 51.5 % (37.0-47.0) Mean Corpuscular Volume 84 FL (80-99) Mean Corpuscular Hemoglobin 28.3 PG (27.0-31.0) Mean Corpuscular Hemoglobin Concent 33.8 G/DL (32.0-36.0) Red Cell Distribution Width 11.3 % (11.6-14.8) Platelet Count 297 K/UL (150-450) Mean Platelet Volume 7.0 FL (6.5-10.1) Neutrophils (%) (Auto) 48.7 % (45.0-75.0) Lymphocytes (%) (Auto) 42.8 % (20.0-45.0) Monocytes (%) (Auto) 6.0 % (1.0-10.0) Eosinophils (%) (Auto) 1.3 % (0.0-3.0) Basophils (%) (Auto) 1.3 % (0.0-2.0) Urine Color Yellow Urine Appearance Clear Urine pH 5 (4.5-8.0) Urine Specific [place] 1.030 (1.005-1.035) Urine Protein 1+ (NEGATIVE) Urine Glucose (UA) Negative (NEGATIVE) Urine Ketones 1+ (NEGATIVE) Urine Blood 4+ (NEGATIVE) Urine Nitrite Negative (NEGATIVE) Urine Bilirubin Negative (NEGATIVE) Urine Urobilinogen 1 MG/DL (0.0-1.0) Urine Leukocyte Esterase 1+ (NEGATIVE) Urine RBC 5-10 /HPF (0 - 2) Urine WBC 2-4 /HPF (0 - 2) Urine Squamous Epithelial Cells Moderate /LPF (NONE/OCC) Urine Bacteria Few /HPF (NONE) Sodium Level 139 MMOL/L (136-145) Potassium Level 3.6 MMOL/L (3.5-5.1) Chloride Level 103 MMOL/L (98-107) Carbon Dioxide Level 29 MMOL/L (21-32) Anion Gap 7 mmol/L (5-15) Blood Urea Nitrogen 16 mg/dL (7-18) Creatinine 0.7 MG/DL (0.55-1.30) Estimat Glomerular Filtration Rate > 60 mL/min (>60) Glucose Level 121 MG/DL (74-106) Calcium Level 9.8 MG/DL (8.5-10.1) Total Bilirubin 0.4 MG/DL (0.2-1.0) Aspartate Amino Transf (AST/SGOT) 28 U/L (15-37) Alanine Aminotransferase (ALT/SGPT) 37 U/L (12-78) Alkaline Phosphatase 149 U/L (46-116) Total Protein 8.6 G/DL (6.4-8.2) Albumin 3.8 G/DL (3.4-5.0) Globulin 4.8 g/dL Albumin/Globulin Ratio 0.8 (1.0-2.7) Thyroid Stimulating Hormone (TSH) < 0.010 uiU/mL (0.358-3.740) Free Thyroxine 2.47 NG/DL (0.76-1.46) Free Triiodothyronine 9.3 pg/mL (2.3-4.2) Urine Opiates Screen Positive (NEGATIVE) Urine Barbiturates Screen Negative (NEGATIVE) Phencyclidine (PCP) Screen Negative (NEGATIVE) Urine Amphetamines Screen Negative (NEGATIVE) Urine Benzodiazepines Screen Negative (NEGATIVE) Urine Cocaine Screen Negative (NEGATIVE) Urine Marijuana (THC) Screen Negative (NEGATIVE) EKG Diagnostic Results Rate: normal Rhythm: NSR ST Segments: no acute changes ASA given to the pt in ED: No Rhythm Strip Diag. Results EP Interpretation: yes Rhythm: NSR, no PVC's, no ectopy Last Vital Signs Date Time Temp Pulse Resp B/P (MAP) Pulse Ox O2 Delivery O2 Flow Rate FiO2 01/10/19 19:22 98.1 79 20 128/74 98 Room Air Status: improved Disposition: HOME, SELF-CARE Condition: Stable Scripts Metoprolol Succinate* (METOPROLOL SUCCINATE*) 25 Mg Tab.er.24h 12.5 MG ORAL BID for 10 Days, TAB Prov: Thanh Kidd MD 01/10/19 Referrals: [facility],REFERRING (PCP) Patient Instructions: Hyperthyroidism Thanh Kidd MD January 10, 2019 20:17
--- NOTE | 2019-01-11 17:43 | Cardiology Report ---
APPROVED REPORT EKG Measurement Heart [id number] Normal sinus rhythm Biatrial enlargement Abnormal ECG
== END 2019-01-10 19:25 | disposition home or self-care (01) ==
LOC: EMR 17:54
DX: E05.90 Thyrotoxicosis, unspecified without thyrotoxic crisis or storm (principal); F41.0 Panic disorder [episodic paroxysmal anxiety]; K21.9 Gastro-esophageal reflux disease without esophagitis; Z90.49 Acquired absence of other specified parts of digestive tract; Z86.73 Personal history of transient ischemic attack (TIA), and cerebral infarction without residual deficits; Z88.2 Allergy status to sulfonamides; Z88.6 Allergy status to analgesic agent
CPT/HCPCS: 36415; 80053; 80307; 81003; 84439; 84443; 84480; 84481; 85025; 93005; 99283

== ENCOUNTER 2020-06-06 14:26 | Emergency (ER) | payer MEDICAID, OTHER ==
[~2020-06-06] VITALS: Ht 165.1 cm; Wt 63.5 kg
[~2020-06-06 14:26] MED LIST changes: +AUGMENTIN 875-1 EAC1 ORAL; +DICYCLOMINE HCL10 MG ORAL; +METOPROLOL SUCC25 MG ORAL; +ZOFRAN4 MG ORAL
[2020-06-06 14:38] VITALS: BP 167/86
--- NOTE | 2020-06-06 14:38 | NUR ---
ED Nurse Note: Pt walked in to ED from home c/o right lower abdominal pain radiating to right flank, nausea and vomiting. Per pt, she feels hot and cold, unable to keep food down. Pt tokk [place] for the pain with some relief. AAOx4, verbally responsive, ambulatory. No SOB, on room air. ERMD at bedside.
[2020-06-06] MEDS ORDERED: Gastrograffin 30ml ORAL PRN (15:15)
[2020-06-06] MEDS ORDERED: Omnipaque-300 100ml vial INJ PRN (15:15)
--- NOTE | 2020-06-06 15:16 | Emergency Room Report ---
History of Present Illness General Chief Complaint: Abdominal Pain Source: Patient Present Illness HPI 59-year-old female with a history of hyperthyroidism on PTU, chronic back pain on [place] daily, remote history of appendicitis status post appendectomy and left salpingo-oophorectomy from an ectopic many years ago, here with abdominal bloating, constipation, vomiting. Patient says that last night she began to feel constipated and that her stomach felt "bloated." She attempted to eat dinner but felt nauseous and was dry heaving. She was able to tolerate yogurt p.o. this morning. She was still feeling constipated and used an enema twice and was able to have only a very small hard bowel movement. She was feeling severe abdominal pain mostly in the right lower quadrant radiating to the right flank but sharp in nature. Took [place] with some relief. Denies fevers, chills, chest pain, palpitations, shortness of breath, other back pain, diarrhea, dysuria dysuria, vaginal bleeding, vaginal discharge. Patient also says that in her right lower quadrant where the MARTA drain was placed many years ago from her salpingo-oophorectomy the area of scar tissue "was leaking some pus." She treated with bacitracin and hydrogen peroxide with resolution. Has not recurred since it first happened 3 weeks ago. Allergies: Coded Allergies: SULFAMETHOXAZOLE (Verified Allergy, Mild, 10/02/12) TRIMETHOPRIM (Verified Allergy, Mild, 10/02/12) IBUPROFEN (Verified Allergy, Unknown, 05/16/18) COVID-19 Screening Contact w/high risk pt: No Experienced COVID-19 symptoms?: No COVID-19 Testing performed CERTIFIED PATHOLOGY ASSISTANT: No Nursing Documentation-PM Past Medical History: No History, Except For Hx Cardiac Problems: No - hep c, Hyperthyroidism Hx Cancer: No Hx Gastrointestinal Problems: Yes - Hep C, GERD, Cholecystectomy. Hx Neurological Problems: Yes - PANIC ATTACKS Hx Cerebrovascular Accident: Yes - CVA 2010. Hx Vertigo: Yes Hx Dizziness: Yes Hx Syncope: Yes Hx Headaches: Yes Hx Numbness: Yes - RIGHT SIDE Hx Weakness: Yes - RIGHT ARM AND LEG Hx Fatigue: Yes Review of Systems All Other Systems: negative except mentioned in HPI Physical Exam Vital Signs Date Time Temp Pulse Resp B/P (MAP) Pulse Ox O2 Delivery O2 Flow Rate FiO2 06/06/20 14:36 98.4 79 19 167/86 (158) 95 Sp02 EP Interpretation: reviewed, normal General Appearance: no apparent distress, alert, non-toxic Head: normocephalic, atraumatic Eyes: bilateral eye normal inspection, bilateral eye PERRL ENT: hearing grossly normal, normal pharynx, no angioedema, normal voice Neck: full range of motion, supple/symm/no masses Respiratory: chest non-tender, lungs clear, normal breath sounds, speaking full sentences Cardiovascular #1: regular rate, rhythm, no edema Cardiovascular #2: 2+ carotid (R), 2+ carotid (L), 2+ radial (R), 2+ radial (L ), 2+ dorsalis pedis (R), 2+ dorsalis pedis (L) Gastrointestinal: normal bowel sounds, soft, no guarding, no rebound, other - Mildly diffusely distended abdomen. Non-tympanic. No rebound or guarding. Soft. Old appearing scar in the right lower quadrant slightly erythematous without any active drainage or induration. Rectal: deferred Genitourinary: normal inspection, no CVA tenderness Musculoskeletal: back normal, normal range of motion, calf tenderness, gait/station normal, non-tender Neurologic: alert, motor strength/tone normal, sensory intact, responsive, speech normal Psychiatric: judgement/insight normal, memory normal, mood/affect normal, no suicidal/homicidal ideation Lymphatic: no adenopathy Medical Decision Making Diagnostic Impression: Primary Impression: Abdominal pain Additional Impressions: Constipation Hyperthyroidism ER Course EKG: NSR, no ischemia, intervals WNL. No ectopy. Rate 74 bpm Rhythm strip: patient monitored for arrhythmias - no malignant dysrhythmias, runs of PVCs, nor pauses noted Procedure: Ultrasound-guided IV. Right antecubital fossa. Under ultrasound guidance. 20-gauge IV placed without complication Laboratory Tests Test 06/06/20 15:52 White Blood Count 10.4 K/UL (4.8-10.8) Red Blood Count 5.17 M/UL (4.20-5.40) Hemoglobin 15.3 G/DL (12.0-16.0) Hematocrit 46.0 % (37.0-47.0) Mean Corpuscular Volume 89 FL (80-99) Mean Corpuscular Hemoglobin 29.6 PG (27.0-31.0) Mean Corpuscular Hemoglobin Concent 33.2 G/DL (32.0-36.0) Red Cell Distribution Width 12.2 % (11.6-14.8) Platelet Count 332 K/UL (150-450) Mean Platelet Volume 7.6 FL (6.5-10.1) Neutrophils (%) (Auto) 64.8 % (45.0-75.0) Lymphocytes (%) (Auto) 29.2 % (20.0-45.0) Monocytes (%) (Auto) 4.9 % (1.0-10.0) Eosinophils (%) (Auto) 0.3 % (0.0-3.0) Basophils (%) (Auto) 0.8 % (0.0-2.0) Urine Color Pale yellow Urine Appearance Clear Urine pH 6 (4.5-8.0) Urine Specific Mayo 1.010 (1.005-1.035) Urine Protein 1+ (NEGATIVE) H Urine Glucose (UA) Negative (NEGATIVE) Urine Ketones Negative (NEGATIVE) Urine Blood 4+ (NEGATIVE) H Urine Nitrite Negative (NEGATIVE) Urine Bilirubin Negative (NEGATIVE) Urine Urobilinogen Normal MG/DL (0.0-1.0) Urine Leukocyte Esterase Negative (NEGATIVE) Urine RBC 5-10 /HPF (0 - 2) H Urine WBC 0-2 /HPF (0 - 2) Urine Squamous Epithelial Cells Few /LPF (NONE/OCC) Urine Bacteria Few /HPF (NONE) Sodium Level 137 MMOL/L (136-145) Potassium Level 3.7 MMOL/L (3.5-5.1) Chloride Level 101 MMOL/L (98-107) Carbon Dioxide Level 31 MMOL/L (21-32) Anion Gap 5 mmol/L (5-15) Blood Urea Nitrogen 12 mg/dL (7-18) Creatinine 0.6 MG/DL (0.55-1.30) Estimated Glomerular Filtration Rate > 60 mL/min (>60) Glucose Level 96 MG/DL (74-106) Calcium Level 9.2 MG/DL (8.5-10.1) Total Bilirubin 0.3 MG/DL (0.2-1.0) Aspartate Amino Transferase (AST) 13 U/L (15-37) L Alanine Aminotransferase (ALT) 21 U/L (12-78) Alkaline Phosphatase 106 U/L (46-116) Troponin I 0.000 ng/mL (0.000-0.056) Total Protein 7.3 G/DL (6.4-8.2) Albumin 3.5 G/DL (3.4-5.0) Globulin 3.8 g/dL Albumin/Globulin Ratio 0.9 (1.0-2.7) L Lipase 128 U/L (73-393) Thyroid Stimulating Hormone (TSH) < 0.010 uiU/mL (0.358-3.740) Impression: Limited assessment of the GI tract, due to lack of enteric contrast administration. No definite acute abnormality Prior cholecystectomy. Mild ectasia of the extrahepatic bile ducts is stable, likely related to postcholecystectomy state. Correlate with liver function tests Evidence of air trapping and mosaic perfusion pattern at the lung bases, may indicate COPD changes. ddx: Hernia, bladder or kidney stones, diverticulitis, enteritis, appendicitis, genital pathology, acute obstruction 59-year-old female here with generalized abdominal pain and constipation. Patient said that she felt nauseous earlier and was dry heaving but never vomited. She was hemodynamically stable in the emergency department and had a largely benign physical examination including a nontender abdomen. No signs of skin infection. CBC and CMP were largely unremarkable. Patient takes PTU for hyperthyroidism and TSH level was low. This was indicated to the patient who expressed understanding and knows that she needs to follow-up with her primary care physician. Vitals remained normal throughout her stay in the emergency department. CT abdomen pelvis did not reveal any acute pathology such as bowel obstruction, volvulus, acute infection, diverticulitis. Urinalysis negative. Patient was given prescription for Colace as she takes [place] chronically and has had issues with constipation in the past. We will follow-up with primary care and her pain specialist. Said that because she sees a pain specialist she is not allowed to receive prescriptions for any pain medication from another physician. Discharged in stable condition. Last Vital Signs Date Time Temp Pulse Resp B/P (MAP) Pulse Ox O2 Delivery O2 Flow Rate FiO2 06/06/20 14:36 98.4 79 19 167/86 (113) 95 Scripts Docusate Sodium* (COLACE*) 100 Mg Capsule 100 MG ORAL DAILY for 14 Days, #14 CAP Prov: Chong Baez M.D. 06/06/20 Chong Baez M.D. Jun 06, 2020 15:16
--- NOTE | 2020-06-06 15:52 | NUR ---
ED Nurse Note: IV line established. Blood and urine sent to lab.
[2020-06-06] MEDS ORDERED: Morphine Sulfate 4mg/ml Inj (IV USE ONLY) IVP ONE (16:00)
[2020-06-06] MEDS ORDERED: Morphine Sulfate 4mg/ml Inj (IV USE ONLY) ONE (16:02)
[2020-06-06 16:16] LABS: APPEARANCE,URINE CLEAR; BILIRUBIN, URINE NEGATIVE (NEGATIVE); COLOR,URINE PALE YELLOW; GLUCOSE, URINE (UA) NEGATIVE (NEGATIVE); KETONES,URINE NEGATIVE (NEGATIVE); LEUKOCYTE ESTERASE ,URINE NEGATIVE (NEGATIVE); NITRITE,URINE NEGATIVE (NEGATIVE); PH,URINE 6 (4.5-8.0); PROTEIN,URINE 1+ (NEGATIVE); UROBILINOGEN,URINE NORMAL MG/DL (0.0-1.0)
[2020-06-06 16:21] LABS: BASOPHILS % (AUTO) 0.8 % (0.0-2.0); EOSINOPHILS % (AUTO) 0.3 % (0.0-3.0); HEMOGLOBIN 15.3 G/DL (12.0-16.0); LYMPHOCYTES % (AUTO) 29.2 % (20.0-45.0); MEAN CORPUSCULAR VOLUME 89 FL (80-99); MONOCYTES % (AUTO) 4.9 % (1.0-10.0); NEUTROPHILS % (AUTO) 64.8 % (45.0-75.0); PLATELET COUNT 332 K/UL (150-450); RED BLOOD COUNT 5.17 M/UL (4.20-5.40); RED CELL DISTRIBUTION WIDTH 12.2 % (11.6-14.8); WHITE BLOOD COUNT 10.4 K/UL (4.8-10.8)
[2020-06-06 16:22] LABS: ANION GAP 5 mmol/L (5-15); BLOOD UREA NITROGEN 12 mg/dL (7-18); CALCIUM 9.2 MG/DL (8.5-10.1); CARBON DIOXIDE 31 MMOL/L (21-32); CHLORIDE 101 MMOL/L (98-107); CREATININE 0.6 MG/DL (0.55-1.30); POTASSIUM 3.7 MMOL/L (3.5-5.1); SODIUM 137 MMOL/L (136-145)
--- NOTE | 2020-06-06 16:34 | NUR ---
ED Nurse Note: Pt taken to CT on wheel chair
[2020-06-06 16:36] LABS: ALANINE AMINOTRANSFERASE 21 U/L (12-78); ALBUMIN 3.5 G/DL (3.4-5.0); ALBUMIN/GLOBULIN RATIO 0.9 (1.0-2.7); ALKALINE PHOSPHATASE 106 U/L (46-116); ASPARTATE AMINO TRANSFERASE 13 U/L (15-37); BILIRUBIN,TOTAL 0.3 MG/DL (0.2-1.0)
--- NOTE | 2020-06-06 17:01 | NUR ---
ED Nurse Note: pt returned from CT
--- NOTE | 2020-06-06 17:30 | Diagnostic Imaging Report ---
Clinical Indication: Right-sided lower abdominal pain with right-sided flank pain Technique: No oral contrast utilized, per emergency room physician request IV administration nonionic contrast. Venous phase spiral acquisition obtained through the abdomen and pelvis. Multiplanar reconstructions were generated. Total dose length product 259 mGycm. CTDIvol(s) 5 mGy. Dose reduction achieved using automated exposure control Comparison: 09/26/2019 Findings: Lack of enteric contrast limits assessment of the GI tract. What may be a very short appendix is demonstrated. In any case, there are no findings to suggest acute appendicitis. No evidence of diverticulosis or diverticulitis. No small bowel distention. No free or loculated intraperitoneal gas or fluid is evident. The gallbladder has been removed. There is mild ectasia of the extrahepatic bile ducts, common bile duct measuring up to 7 mm in diameter. This is grossly unchanged. No downstream obstructive lesion demonstrated. The liver is unremarkable. The pancreas demonstrates mild prominence of the downstream pancreatic duct, is otherwise unremarkable. The spleen, adrenals, kidneys are unremarkable. No retroperitoneal or mesenteric mass or adenopathy. No pelvic mass or adenopathy. The included lung bases demonstrate a slight mosaic perfusion pattern with areas of air trapping. There is some scarring or atelectasis at both lung bases. The bones demonstrate degenerative spondylosis changes. Impression: Limited assessment of the GI tract, due to lack of enteric contrast administration. No definite acute abnormality Prior cholecystectomy. Mild ectasia of the extrahepatic bile ducts is stable, likely related to postcholecystectomy state. Correlate with liver function tests Evidence of air trapping and mosaic perfusion pattern at the lung bases, may indicate COPD changes. The CT scanner at [facility] is accredited by the [employer] and the scans are performed using protocols designed to limit radiation exposure to as low as reasonably achievable to attain images of sufficient resolution adequate for diagnostic evaluation.
--- NOTE | 2020-06-06 17:57 | NUR ---
ED Nurse Note: PT ambulated to restroom
[2020-06-06] MEDS ORDERED: COLACE100 MG ORAL (18:07)
[2020-06-06 18:15] VITALS: BP 155/84
[2020-06-07] MEDS ORDERED: BISACODYL5 MG ORAL (19:30)
[2020-06-07] MEDS ORDERED: LACTULOSE20 GM/301 ORAL (19:30)
[2020-06-07] MEDS ORDERED: PANTOPRAZOLE SO40 MG ORAL (19:31)
[2020-06-07] MEDS ORDERED: ZOFRAN4 M1 ORAL (19:31)
--- NOTE | 2020-06-08 14:52 | Cardiology Report ---
APPROVED REPORT EKG Measurement Heart [id number] <Conclusion> Normal sinus rhythm Normal ECG
== END 2020-06-06 18:15 | disposition home or self-care (01) ==
LOC: EMR 15:39
DX: R10.31 Right lower quadrant pain (principal); K59.00 Constipation, unspecified; E05.90 Thyrotoxicosis, unspecified without thyrotoxic crisis or storm; Z86.73 Personal history of transient ischemic attack (TIA), and cerebral infarction without residual deficits; Z88.6 Allergy status to analgesic agent; Z88.8 Allergy status to other drugs, medicaments and biological substances; Z90.49 Acquired absence of other specified parts of digestive tract; Z79.82 Long term (current) use of aspirin
CPT/HCPCS: 36415; 74177; 80053; 81003; 83690; 84443; 84484; 85025; 93005; 96361; 96374; 96375; J2270; J2405; J7030; Q9965; Z7502; 99284

== ENCOUNTER 2020-06-07 17:29 | Emergency (ER) | payer OTHER ==
[~2020-06-07] VITALS: Ht 165.1 cm; Wt 63.5 kg
[~2020-06-07 17:29] MED LIST changes: +COLACE100 MG ORAL
[2020-06-07 17:50] VITALS: BP 161/96
--- NOTE | 2020-06-07 17:50 | NUR ---
ED Nurse Note: Pt walked into ED for R flank pain 10/. Pt has had nausea and vomiting for past 3 days. Pt has recently been in ED for same issue. Pt is alert and orientedx4, ambulatory. Pt has been seen by WINDY. Pt is currently dry heaving.
[2020-06-07] MEDS ORDERED: Lactulose 20gm/30ml UDC ORAL ONE (18:00)
[2020-06-07] MEDS: Morphine Sulfate 4mg/ml Inj (IV USE ONLY) IVP ONE ×2 (18:01→18:12)
--- NOTE | 2020-06-07 18:01 | NUR ---
ED Nurse Note: ZAIN Boss states to give IV meds by IM route because pt is a hard stick.
[2020-06-07] MEDS ORDERED: Morphine Sulfate 2mg/ml Inj(IV/IM USE ONLY) IM ONE (18:15)
--- NOTE | 2020-06-07 19:06 | Emergency Room Report ---
History of Present Illness General Chief Complaint: Abdominal Pain Source: Patient Present Illness HPI 59-year-old female with history of hypothyroidism currently on PTU, chronic back pain currently on [place], and COPD who was just seen at [facility] yesterday for abdominal pain and constipation here complaining of worsening pain and new onset nausea. Reports that she has been taking [place] for many years however has never been this constipated and flatulence. Complains of right flank pain with nausea. Denies any fever and chills. Reports that has a very small amount of bowel movement was blood-streaked this morning. Feels like she is in "gagging" a lot. Denies any fever and chills. Denies chest pain shortness of breath. Reports that she took Colace however did not work. Patient wants all the bowel movement out" at once". Denies any urinary symptoms. CT scan from yesterday appears to be within normal limits with some constipation noted. Patient has been drinking water has not been able to eat due to not feeling hungry due to a bdomen feeling distended. Patient is a tobacco smoker however denies drug use and alcohol intake Allergies: Coded Allergies: SULFAMETHOXAZOLE (Verified Allergy, Mild, 10/02/12) TRIMETHOPRIM (Verified Allergy, Mild, 10/02/12) IBUPROFEN (Verified Allergy, Unknown, 05/16/18) COVID-19 Screening Contact w/high risk pt: No Experienced COVID-19 symptoms?: No COVID-19 Testing performed PUPIL PERSONNEL WORKER: No Patient History Past Medical History: see triage record Past Surgical History: none Pertinent Family History: none Last Menstrual Period: na Now: No Immunizations: UTD Reviewed Nursing Documentation: PMH: Agreed; PSxH: Agreed Nursing Documentation-PMH Past Medical History: No History, Except For Hx Cardiac Problems: No - hep c, Hyperthyroidism Hx Cancer: No Hx Gastrointestinal Problems: Yes - Hep C, GERD, Cholecystectomy. Hx Neurological Problems: Yes - PANIC ATTACKS Hx Cerebrovascular Accident: Yes - CVA 2010. Hx Vertigo: Yes Hx Dizziness: Yes Hx Syncope: Yes Hx Headaches: Yes Hx Numbness: Yes - RIGHT SIDE Hx Weakness: Yes - RIGHT ARM AND LEG Hx Fatigue: Yes Review of Systems All Other Systems: negative except mentioned in HPI Physical Exam Vital Signs Date Time Temp Pulse Resp B/P (MAP) Pulse Ox O2 Delivery O2 Flow Rate FiO2 06/07/20 17:33 98.2 77 18 169/83 (111) 98 Room Air 06/07/20 17:50 100 Sp02 EP Interpretation: reviewed, normal General Appearance: alert, GCS 15, non-toxic, mild distress Head: normocephalic, atraumatic Eyes: bilateral eye normal inspection, bilateral eye PERRL ENT: hearing grossly normal, normal pharynx, no angioedema, normal voice Neck: full range of motion, supple, supple/symm/no masses Respiratory: chest non-tender, lungs clear, no rhonchi Cardiovascular #1: regular rate, rhythm, no edema Cardiovascular #2: 2+ carotid (R), 2+ carotid (L), 2+ radial (R), 2+ radial (L), 2+ dorsalis pedis (R), 2+ dorsalis pedis (L) Gastrointestinal: normal bowel sounds, non tender, no mass, no organomegaly, no peritonitis, no bruit, non-distended, no hernia, no pulsatile mass, no rebound, guarding - Epigastric Rectal: deferred Genitourinary: no CVA tenderness Musculoskeletal: back normal, no calf tenderness Neurologic: alert, motor strength/tone normal, oriented x3, sensory intact, responsive, speech normal Psychiatric: judgement/insight normal, memory normal, mood/affect normal, no suicidal/homicidal ideation Skin: no rash Lymphatic: no adenopathy Medical Decision Making PA Attestation All my diagnosis and treatment plans were reviewed ad discussed with my supervising physician Dr. Mcclellan Diagnostic Impression: Primary Impression: Flatulence Additional Impressions: Abdominal pain Constipation ER Course 59-year-old female with history of hypothyroidism currently on PTU, chronic back pain currently on [place], and COPD who was just seen at [facility] yesterday for abdominal pain and constipation here complaining of worsening pain and new onset nausea. Reports that she has been taking [place] for many years however has never been this constipated and flatulence. Complains of right flank pain with nausea. Denies any fever and chills. Reports that has a very small amount of bowel movement was blood-streaked this morning. Feels like she is in "gagging" a lot. Denies any fever and chills. Denies chest pain shortness of breath. Reports that she took Colace however did not work. Patient wants all the bowel movement out" at once". Denies any urinary symptoms. CT scan from yesterday appears to be within normal limits with some constipation noted. Patient has been drinking water has not been able to eat due to not feeling hungry due to abdomen feeling distended. Patient is a tobacco smoker however denies drug use and alcohol intake Ddx considered but are not limited to: appendicitis, cholecystis, gastritis, gastroenteritis, UTI, pyelonephritis, SBO, diverticulitis, influenza with GI manifestation, DC, colon cancer Vital signs: are WNL, pt. is afebrile H&PE are most consistent with: Abdominal pain, flatulence, constipation ORDERS: Abdominal ultrasound, labs do not need to be repeated as patient refuses since she reports that" she is a hard stick," and labs were just done yesterday at [facility]. Pantoprazole, Zofran, lactulose, bisacodyl ED INTERVENTIONS: Morphine IM, Zofran IM, lactulose p.o., bisacodyl p.o., pantoprazole p.o. DISCHARGE: At this time pt. is stable for d/c to home. Will provide printed patient care instructions, and any necessary prescriptions. Care plan and follow up instructions have been discussed with the patient prior to discharge. Patient take medication as directed, follow primary care provider, colonoscopy also recommended, I explained to patient that bowel movement can take a longer time to be developed after patient has been constipated for a while. Increase fiber intake and use Metamucil. If worsening symptom return to the emergency room. CT/MRI/US Diagnostic Results CT/MRI/US Diagnostic Results : Imaging Test Ordered: Abdominal ultrasound Impression Flatulence.normal limits, no SBO ultrasound noted, pancreatic duct within normal limits, pancreas and liver are within normal limits. Status post cholecystectomy. Last Vital Signs Date Time Temp Pulse Resp B/P (MAP) Pulse Ox O2 Delivery O2 Flow Rate FiO2 06/07/20 18:41 98.3 06/07/20 17:50 82 16 161/96 100 Room Air 06/07/20 17:50 100 Disposition: HOME, SELF-CARE Condition: Stable Scripts Ondansetron (Zofran) 4 Mg Tablet 4 MG ORAL Q6H PRN for Nausea & Vomiting, #14 TAB Prov: Gera Gomez 06/07/20 Pantoprazole* (PANTOPRAZOLE*) 40 Mg Tablet. 40 MG ORAL EVERY 12 HOURS, #30 TAB Prov: Gera Gomez 06/07/20 Bisacodyl* (DULCOLAX*) 5 Mg Tablet. 5 MG ORAL DAILY, #20 TAB 0 Refills Prov: Gera Gomez 06/07/20 Lactulose (LACTULOSE*) 20 Gm/30 Ml Solution 30 ML ORAL BID, #300 ML 0 Refills Prov: Gera Gomez 06/07/20 Referrals: NON PHYSICIAN (PCP) Patient Instructions: Abdominal Pain, Adult, Constipation, Adult, [id number] Additional Instructions: Take medication as directed, follow-up with your primary care provider, you can take your [place] at home for pain, have your primary doctor test you for H. pylori bacteria as there is a lot of flatulence noted on your ultrasound. Worsening symptoms return to the emergency room. Use Metamucil and swallow water. Gera Gomez Jun 07, 2020 19:06
--- NOTE | 2020-06-07 19:14 | NUR ---
ED Nurse Note: ER provider at bedside.
--- NOTE | 2020-06-07 19:17 | NUR ---
ED Nurse Note: ZAIN Boss aware that unable to get urine. PA state ok to discharge.
--- NOTE | 2020-06-07 19:23 | NUR ---
ED Nurse Note: Patient currently waiting for additional digestive medication. No complaints at this time. will continue to monitor.
[2020-06-07] MEDS ORDERED: BISACODYL5 MG ORAL (19:30)
[2020-06-07] MEDS ORDERED: LACTULOSE20 GM/301 ORAL (19:30)
[2020-06-07] MEDS ORDERED: Bisacodyl EC 5mg tab ORAL PRN (19:30)
[2020-06-07] MEDS ORDERED: ZOFRAN4 M1 ORAL (19:31)
[2020-06-07] MEDS ORDERED: PANTOPRAZOLE SO40 MG ORAL (19:31)
[2020-06-07 19:57] VITALS: BP 146/92
--- NOTE | 2020-06-07 20:49 | Diagnostic Imaging Report ---
EXAM: US Abdomen Complete CLINICAL HISTORY: PAIN TECHNIQUE: Real-time ultrasound of the abdomen with image documentation. COMPARISON: None FINDINGS: Liver: The liver measures up to 11.2 cm. There are no focal liver lesions. No intrahepatic bile duct dilation. Gallbladder: Unremarkable. No gallstones. Common bile duct: The common bile duct measures up to 5 mm's. No stones. No dilation. Pancreas: Unremarkable as visualized. Kidneys: The right kidney measures up to 10.2 cm. There is no evidence of nephrolithiasis or hydronephrosis. The left kidney measures up to 10.5 cm. There is no evidence of nephrolithiasis or hydronephrosis. Spleen: The spleen measures up to 9.4 cm. Aorta: Unremarkable. No aneurysm. Inferior vena cava: Unremarkable. Other findings: The bladder surgically absent. IMPRESSION: Status post cholecystectomy. Otherwise, unremarkable abdominal ultrasound.
== END 2020-06-07 19:57 | disposition home or self-care (01) ==
LOC: EMR 17:46
DX: R14.3 Flatulence (principal); R10.9 Unspecified abdominal pain; K59.00 Constipation, unspecified; E03.9 Hypothyroidism, unspecified; Z88.2 Allergy status to sulfonamides; Z88.6 Allergy status to analgesic agent; Z86.19 Personal history of other infectious and parasitic diseases; K21.9 Gastro-esophageal reflux disease without esophagitis; Z90.49 Acquired absence of other specified parts of digestive tract; Z86.73 Personal history of transient ischemic attack (TIA), and cerebral infarction without residual deficits
CPT/HCPCS: 76700; 96372; J2270; J2405; Z7502; 99283